=== PATIENT | female | born 1985 | race African-American/Black ===

== ENCOUNTER 2024-07-06 10:24 | Outpatient (CLI) | payer OTHER | END 2024-07-06 10:25 | disposition home or self-care (01) | LOC: BICRAD 10:24 | PROVIDERS: ATTEND Family Medicine | DX: M25.551 Pain in right hip (principal); M25.552 Pain in left hip; M16.0 Bilateral primary osteoarthritis of hip; M25.751 Osteophyte, right hip; M76.892 Other specified enthesopathies of left lower limb, excluding foot; M76.891 Other specified enthesopathies of right lower limb, excluding foot ==

== ENCOUNTER 2024-08-06 09:25 | Inpatient (IN) | payer OTHER ==
[2024-08-06] MEDS ORDERED: Ondansetron PF 4 MG/2 ML Vial ONE ×2 (10:25→15:08)
[2024-08-06] MEDS ORDERED: fentaNYL 50 mcg/mL 1 mL Vial ONE (10:25)
[2024-08-06] MEDS ORDERED: Iopamidol-370 76% 500 ML MDV (1 ML CHARGE) ONE (10:37)
[2024-08-06 10:40] LABS: #Basophils Less than 0.03 10x3/uL (0.0-0.2); #Eosinophils Less than 0.03 10x3/uL (0.0-0.7); %Basophils 0.1 % (0.0-1.0); %Eosinophils 0.1 % (0.0-10.0); %Lymphocytes 17.7 % (21.0-51.0); %Monocytes 4.4 % (0.0-10.0); %Neutrophils 77.5 % (42.0-75.0); Hematocrit 40.7 % (36.0-47.0); Hemoglobin 13.2 g/dL (12.0-16.0); Mean Corpuscular HGB CONC 32.4 g/dL (32.0-36.0); Mean Corpuscular Hemoglobin 28.9 pg (27.0-31.0); Mean Corpuscular Volume 89.1 fL (78.0-98.0); Mean Platelet Volume 8.4 fL (7.4-10.4); Platelet Count 307 10x3/uL (130-400); RBC Distribution Width 13.3 % (11.5-14.5); Red Blood Cell (RBC) Count 4.57 mill/uL (4.20-5.40)
[2024-08-06 10:48] LABS: Bacteria/HPF None Seen HPF (None Seen); Bilirubin Negative (Negative); Blood, Urine 1+ (Negative); CAUTI Indications for Culture Pelvic or flank pain; Clarity Clear (Clear); Glucose, Urine (Dipstick) Normal (Negative); Ketone, Urine 10 mg/dL (Negative); Leukocyte Negative Leu/uL (Negative); Nitrite Negative (Negative); Protein, Urine (Dipstick) 50 mg/dL (Neg-Trace); RBC/HPF 0-3 HPF (0-3); Specific Gravity, Urine 1.036 (1.002-1.036); Squamous Epithelial 0-3 HPF (0-3); WBC/HPF 0-3 HPF (0-3); pH, Urine 5.5 (5.0-9.0)
[2024-08-06 10:49] LABS: BHCG - Serum Negative (NEGATIVE); Pregs Control Background? CLEAR/WHITE (CLR/WHITE); Pregs Control Bar Appear? YES (CONTROL BAR)
[2024-08-06 10:54] LABS: Urine Culture Reflex No No
[2024-08-06 10:56] LABS: ALT (SGPT) 8 U/L (8-55); AST (SGOT) 10 U/L (5-34); Albumin 3.7 g/dL (3.5-5.0); Alkaline Phosphatase 165 U/L (40-110); Anion Gap 13 mmol/L (10-20); BUN (Urea Nitrogen) 17 mg/dL (7.0-18.7); Bilirubin, Total 1.1 mg/dL (0.2-1.2); Calc. Creatinine Clearance 0 mL/min (70-130); Calcium 9.1 mg/dL (7.8-10.44); Carbon Dioxide 27 mmol/L (22-29); Chloride 102 mmol/L (98-107); Estimated GFR 97; Glucose 105 mg/dL (70-105); Lipase 22 U/L (8-78); Potassium 3.5 mmol/L (3.5-5.1); Protein, Total 8.7 g/dL (6.0-8.3); Sodium 138 mmol/L (136-145)
[2024-08-06] MEDS ORDERED: Sodium Chloride 0.9% 100 ML ONE ×2 (11:38→14:34)
[2024-08-06] MEDS ORDERED: Piperacillin/Tazobactam 4.5 GM VIAL ONE (11:38)
[2024-08-06] MEDS ORDERED: PROPOFOL 0 ML ONE (12:53)
[2024-08-06] MEDS ORDERED: Fentanyl 250 MCG/5 ML VIAL ONE (12:53)
[2024-08-06] MEDS ORDERED: Rocuronium Bromide 10 MG/ML (10ML VIAL) ONE (12:54)
[2024-08-06] MEDS ORDERED: Lidocaine 2% PF 5 ML VIAL ONE (12:54)
[2024-08-06] MEDS ORDERED: Ipratropium/Albuterol 3 ML NEB NEB PRN (14:04)
[2024-08-06] MEDS ORDERED: Morphine 2 MG/ML VIAL SLOW IVP PRN (14:04)
[2024-08-06] MEDS ORDERED: Morphine 4 MG/ML VIAL SLOW IVP PRN (14:04)
[2024-08-06] MEDS ORDERED: cefOXitin 2 GM VIAL ONE (14:34)
[2024-08-06] MEDS ORDERED: fentaNYL PF 100 MCG/2 ML SYRINGE ONE ×2 (14:40→17:46)
[2024-08-06] MEDS ORDERED: PROPOFOL 20 ML ONE (14:40)
[2024-08-06] MEDS ORDERED: Midazolam HCl 2 mg/2 ml Vial ONE (14:40)
[2024-08-06] MEDS ORDERED: PHENYLEPHRINE-NS 100 MCG/ML 10 ML SYRINGE ONE (14:40)
[2024-08-06] MEDS ORDERED: Dexamethasone 4 mg/ml Vial ONE (15:08)
[2024-08-06] MEDS ORDERED: HYDROmorphone 2 MG/ML VIAL ONE (15:47)
[2024-08-06] MEDS ORDERED: SUGAMMADEX SODIUM 200 MG/2 ML VIAL ONE (16:10)
[2024-08-06] MEDS ORDERED: Lidocaine 2% 6 ML (Jelly) SYR ONE (16:52)
[2024-08-06] MEDS ORDERED: diphenhydrAMINE 50 MG/ML VIAL IM PRN (17:35)
[2024-08-06] MEDS ORDERED: Promethazine HCl 25 MG/ML VIAL IM PRN ×2 (17:35)
[2024-08-06] MEDS ORDERED: Meperidine HCl/PF 25 MG/ML VIAL SLOW IVP PRN ×2 (17:35)
[2024-08-06] MEDS ORDERED: Ondansetron HCl/PF 4 MG/2 ML Vial IVP PRN (17:35)
[2024-08-06] MEDS ORDERED: diphenhydrAMINE 50 MG/ML VIAL IVP PRN (17:35)
[2024-08-06] MEDS ORDERED: FENTANYL 500 MCG/10 ML VIAL 2,000 MCG in Sodium Chloride 0.9% 60 ML IV PRN (17:35)
[2024-08-06] MEDS ORDERED: Naloxone HCl 0.4 mg/ml Vial IV PRN (17:35)
[2024-08-06] MEDS ORDERED: HYDROmorphone 2 MG/ML VIAL SLOW IVP PRN (17:35)
[2024-08-06] MEDS ORDERED: Communication Order-Pharmacy FS SCH (17:45)
[2024-08-06] MEDS ORDERED: Fentanyl CADD 100 ML IVPB SCH (17:45)
[2024-08-06] MEDS ORDERED: Piperacillin/Tazobactam 3.375 GM in Sodium Chloride 0.9% 100 ML IVPB SCH (18:00)
[2024-08-06] MEDS: Piperacillin/Tazobactam 3.375 GM in Sodium Chloride 0.9% 100 ML IVPB SCH (19:44)
[2024-08-06] MEDS: Famotidine/PF 20 mg/2ml Vial SLOW IVP SCH (19:45)
[2024-08-06] MEDS: Lactated Ringer's 1,000 ML IV SCH (19:45)
[2024-08-06] MEDS: Sodium Chloride 0.9% 1,000 ML IV SCH (19:46)
[2024-08-06 21:32] VITALS: BMI 26.1
[2024-08-07 06:27] LABS: #Basophils Less than 0.03 10x3/uL (0.0-0.2); #Eosinophils Less than 0.03 10x3/uL (0.0-0.7); %Basophils 0.1 % (0.0-1.0); %Lymphocytes 14.6 % (21.0-51.0); Hematocrit 35.1 % (36.0-47.0); Hemoglobin 11.2 g/dL (12.0-16.0); Mean Corpuscular HGB CONC 31.9 g/dL (32.0-36.0); Mean Corpuscular Hemoglobin 29.2 pg (27.0-31.0); Mean Corpuscular Volume 91.4 fL (78.0-98.0); Mean Platelet Volume 8.9 fL (7.4-10.4); Platelet Count 279 10x3/uL (130-400); RBC Distribution Width 13.4 % (11.5-14.5); Red Blood Cell (RBC) Count 3.84 mill/uL (4.20-5.40)
[2024-08-07 06:38] LABS: INR-International Normal Ratio 1.3; PTT 30.1 sec (22.9-36.1); Prothrombin Time 16.5 sec (12.0-14.7)
[2024-08-07 06:40] LABS: Anion Gap 12 mmol/L (10-20); BUN (Urea Nitrogen) 13 mg/dL (7.0-18.7); Calc. Creatinine Clearance 124 mL/min (70-130); Calcium 7.9 mg/dL (7.8-10.44); Carbon Dioxide 26 mmol/L (22-29); Chloride 105 mmol/L (98-107); Estimated GFR 105; Glucose 127 mg/dL (70-105); Potassium 3.8 mmol/L (3.5-5.1); Sodium 139 mmol/L (136-145)
[2024-08-07] MEDS: Enoxaparin 40 MG (0.4 mL) SYRINGE SC SCH (10:11)
[2024-08-07] MEDS: Fentanyl CADD 100 ML IVPB SCH (13:30)
[2024-08-07] MEDS: Scopolamine 1 mg/72 hour Patch TD SCH (17:49)
[2024-08-07] MEDS: HYDROcodone/Acetaminophen 10/325 mg Tablet PO SCH (17:50)
[2024-08-07] MEDS: Methocarbamol 500 MG TAB PO SCH ×2 (17:51→21:20)
[2024-08-07] MEDS: Acetaminophen 325 MG TAB PO SCH (18:02)
[2024-08-07] MEDS: Morphine 2 MG/ML VIAL SLOW IVP PRN (20:17)
[2024-08-08] MEDS: diphenhydrAMINE 25 MG CAP PO PRN (02:42)
[2024-08-08] MEDS ORDERED: Morphine 2 MG/ML VIAL SLOW IVP SCH (06:15)
[2024-08-08] MEDS ORDERED: oxyCODONE 5 MG TAB PO PRN (07:00)
[2024-08-08] MEDS: Morphine 4 MG/ML VIAL SLOW IVP SCH (10:07)
[2024-08-08] MEDS: oxyCODONE 5 MG TAB PO PRN (15:55)
[2024-08-09] MEDS: Ondansetron PF 4 MG/2 ML Vial IVP PRN (03:20)
[2024-08-09 16:00] LABS: #Basophils Less than 0.03 10x3/uL (0.0-0.2); %Eosinophils 1.1 % (0.0-10.0); %Lymphocytes 17.9 % (21.0-51.0); %Monocytes 7.8 % (0.0-10.0); %Neutrophils 72.3 % (42.0-75.0); Hematocrit 27.4 % (36.0-47.0); Hemoglobin 8.7 g/dL (12.0-16.0); Mean Corpuscular HGB CONC 31.8 g/dL (32.0-36.0); Mean Corpuscular Volume 91.3 fL (78.0-98.0); Platelet Count 221 10x3/uL (130-400); RBC Distribution Width 13.3 % (11.5-14.5)
[2024-08-10 06:50] LABS: #Basophils Less than 0.03 10x3/uL (0.0-0.2); %Eosinophils 1.7 % (0.0-10.0); %Lymphocytes 16.4 % (21.0-51.0); %Monocytes 8.1 % (0.0-10.0); %Neutrophils 73.6 % (42.0-75.0); Hematocrit 26.8 % (36.0-47.0); Hemoglobin 8.7 g/dL (12.0-16.0); Mean Corpuscular HGB CONC 32.5 g/dL (32.0-36.0); Mean Corpuscular Hemoglobin 29.1 pg (27.0-31.0); Mean Corpuscular Volume 89.6 fL (78.0-98.0); Mean Platelet Volume 8.6 fL (7.4-10.4); Platelet Count 229 10x3/uL (130-400); RBC Distribution Width 13.3 % (11.5-14.5); Red Blood Cell (RBC) Count 2.99 mill/uL (4.20-5.40)
[2024-08-10 07:20] LABS: Anion Gap 8 mmol/L (10-20); BUN (Urea Nitrogen) 5 mg/dL (7.0-18.7); Calc. Creatinine Clearance 142 mL/min (70-130); Calcium 7.8 mg/dL (7.8-10.44); Carbon Dioxide 26 mmol/L (22-29); Chloride 106 mmol/L (98-107); Estimated GFR 114; Glucose 94 mg/dL (70-105); Potassium 3.3 mmol/L (3.5-5.1); Sodium 137 mmol/L (136-145)
[2024-08-10] MEDS: Potassium Chloride 20 MEQ in Lactated Ringer's 1,000 ML IV SCH (09:18)
[2024-08-10] MEDS: HYDROcodone/Acetaminophen 5/325 mg Tablet PO PRN (09:18)
[2024-08-10] MEDS: Docusate 100 MG CAP PO SCH (09:18)
[2024-08-10] MEDS: Ondansetron PF 4 MG/2 ML Vial IVP PRN (12:20)
[2024-08-11] MEDS ORDERED: Ibuprofen 600 MG TAB PO PRN (11:44)
[2024-08-11 11:59] VITALS: BP 115/72; TEMP 99
[2024-08-11] MEDS: traMADol HCl 50 MG TAB PO PRN (13:12)
[2024-08-11] MEDS: Acetaminophen 500 MG TAB PO SCH (13:12)
== END 2024-08-11 13:49 | disposition home or self-care (01) | DRG 330 ==
LOC: ERS 09:25 → SDC 13:39 → SURG B 14:04 → EEVIPCON 14:04
PROVIDERS: ADMIT Surgery; ATTEND Surgery
PROC: 0DBN0ZZ Excision of Sigmoid Colon, Open Approach (ICD-10-PCS; principal; 2024-08-06)
PROC: 0DBF0ZZ Excision of Right Large Intestine, Open Approach (ICD-10-PCS; 2024-08-06)
PROC: 0D980ZZ Drainage of Small Intestine, Open Approach (ICD-10-PCS; 2024-08-06)
PROC: 3E033XZ Introduction of Vasopressor into Peripheral Vein, Percutaneous Approach (ICD-10-PCS; 2024-08-06)
DX: K50.912 Crohn's disease, unspecified, with intestinal obstruction (principal); K35.80 Unspecified acute appendicitis; K50.914 Crohn's disease, unspecified, with abscess; K50.913 Crohn's disease, unspecified, with fistula; Z79.899 Other long term (current) drug therapy
CPT/HCPCS: 36415; 36416; 74177; 80048; 80053; 81001; 83605; 83690; 84703; 85025; 85610; 85730; 87040; 88307; 88309; J0694; J1100; J1650; J2250; J2272; J2405; J2543; J2704; J3010; J3480; J3490; J7030; J7120; Q9967

== ENCOUNTER 2024-08-15 12:14 | Emergency (ER) | payer OTHER ==
[2024-08-15] MEDS ORDERED: Morphine 4 MG/ML VIAL ONE (13:00)
[2024-08-15] MEDS ORDERED: Ondansetron PF 4 MG/2 ML Vial ONE (13:00)
[2024-08-15 13:26] LABS: #Basophils Less than 0.03 10x3/uL (0.0-0.2); %Basophils 0.2 % (0.0-1.0); %Eosinophils 1.7 % (0.0-10.0); %Lymphocytes 18.4 % (21.0-51.0); %Neutrophils 74.3 % (42.0-75.0); Hematocrit 27.5 % (36.0-47.0); Hemoglobin 9.1 g/dL (12.0-16.0); Mean Corpuscular HGB CONC 33.1 g/dL (32.0-36.0); Mean Corpuscular Hemoglobin 29.3 pg (27.0-31.0); Mean Corpuscular Volume 88.4 fL (78.0-98.0); Mean Platelet Volume 8.8 fL (7.4-10.4); Platelet Count 454 10x3/uL (130-400); RBC Distribution Width 13.8 % (11.5-14.5); Red Blood Cell (RBC) Count 3.11 mill/uL (4.20-5.40)
[2024-08-15 13:47] LABS: ALT (SGPT) 12 U/L (8-55); AST (SGOT) 16 U/L (5-34); Albumin 2.8 g/dL (3.5-5.0); Alkaline Phosphatase 140 U/L (40-110); Anion Gap 12 mmol/L (10-20); BUN (Urea Nitrogen) 9 mg/dL (7.0-18.7); Bilirubin, Total 0.3 mg/dL (0.2-1.2); Calc. Creatinine Clearance 0 mL/min (70-130); Calcium 8.3 mg/dL (7.8-10.44); Carbon Dioxide 28 mmol/L (22-29); Chloride 102 mmol/L (98-107); Estimated GFR 115; Globulin 4.1 g/dL (2.4-3.5); Glucose 95 mg/dL (70-105); Lipase 103 U/L (8-78); Potassium 3.1 mmol/L (3.5-5.1); Protein, Total 6.9 g/dL (6.0-8.3); Sodium 139 mmol/L (136-145)
[2024-08-15] MEDS ORDERED: Iopamidol-370 76% 500 ML MDV (1 ML CHARGE) ONE (15:40)
== END 2024-08-15 15:46 | disposition home or self-care (01) ==
LOC: ERS 12:14
DX: R10.31 Right lower quadrant pain (principal); K50.90 Crohn's disease, unspecified, without complications
CPT/HCPCS: 74177; 80053; 83690; 85025; 96374; 96375; J2272; J2405; Q9967

== ENCOUNTER → 2025-02-04 | Day surgery (SDC) | payer OTHER | LOC: BICULT 12:41 | PROVIDERS: ATTEND Family Medicine | PROC: 0HBU3ZX Excision of Left Breast, Percutaneous Approach, Diagnostic (ICD-10-PCS; principal; 2025-02-04) | DX: D24.2 Benign neoplasm of left breast (principal); D64.9 Anemia, unspecified; K50.90 Crohn's disease, unspecified, without complications; E66.3 Overweight; Z79.899 Other long term (current) drug therapy | CPT/HCPCS: 19083; 88305 ==

== ENCOUNTER 2025-07-03 12:38 | Emergency (ER) | payer OTHER ==
[2025-07-03] MEDS ORDERED: Ketorolac Tromethamine 30 MG (1 mL) VIAL ONE (13:31)
[2025-07-03 13:51] LABS: #Basophils 0.03 10x3/uL (0.0-0.2); #Eosinophils 0.12 10x3/uL (0.0-0.7); #Monocytes 0.30 10x3/uL (0.11-0.59); #Neutrophils 2.90 10x3/uL (1.40-6.50); %Basophils 0.5 % (0.0-1.0); %Eosinophils 2.0 % (0.0-10.0); %Lymphocytes 44.6 % (21.0-51.0); %Monocytes 4.9 % (0.0-10.0); %Neutrophils 47.8 % (42.0-75.0); Hematocrit 38.5 % (36.0-47.0); Hemoglobin 12.6 g/dL (12.0-16.0); Mean Corpuscular Hemoglobin 29.2 pg (27.0-31.0); Mean Corpuscular Volume 89.1 fL (78.0-98.0); Platelet Count 228 10x3/uL (130-400); Red Blood Cell (RBC) Count 4.32 mill/uL (4.20-5.40); White Blood Cell (WBC) Count 6.07 10x3/uL (4.8-10.8)
[2025-07-03 14:10] LABS: Bacteria/HPF None Seen HPF (None Seen); CAUTI Indications for Culture Dysuria,urgency,freq; Glucose, Urine (Dipstick) Normal (Negative); Leukocyte Negative Leu/uL (Negative); Protein, Urine (Dipstick) 20 mg/dL (Neg-Trace); RBC/HPF Greater than 50 HPF (0-3); Specific Gravity, Urine 1.032 (1.002-1.036); WBC/HPF 0-3 HPF (0-3)
[2025-07-03 14:13] LABS: Urine Culture Reflex No No
[2025-07-03 14:14] LABS: Anion Gap 14 mmol/L (10-20); BUN (Urea Nitrogen) 16 mg/dL (7.0-18.7); Calc. Creatinine Clearance 0 mL/min (70-130); Calcium 8.6 mg/dL (7.8-10.44); Carbon Dioxide 22 mmol/L (22-29); Chloride 108 mmol/L (98-107); Glucose 98 mg/dL (70-105); Potassium 3.7 mmol/L (3.5-5.1); Sodium 140 mmol/L (136-145)
== END 2025-07-03 15:31 | disposition home or self-care (01) ==
LOC: ERS 12:38
DX: M54.50 Low back pain, unspecified (principal)
CPT/HCPCS: 72170; 74176; 80048; 81001; 85025; 86141; 96374; 96375; J1885

== ENCOUNTER 2025-09-21 07:48 | Outpatient (CLI) | payer OTHER | END 2025-09-21 07:49 | disposition home or self-care (01) | LOC: BICMAMMO 07:48 | PROVIDERS: ATTEND Family Medicine | DX: Z12.11 Encounter for screening for malignant neoplasm of colon (principal); M25.50 Pain in unspecified joint; K03.81 Cracked tooth; R26.9 Unspecified abnormalities of gait and mobility; R60.9 Edema, unspecified; K20.90 Esophagitis, unspecified without bleeding; Z97.8 Presence of other specified devices; Z97.2 Presence of dental prosthetic device (complete) (partial) | CPT/HCPCS: 77080 ==